=== PATIENT | female | born 2000 | race Caucasian/White ===

== ENCOUNTER 2018-09-10 11:48 | Emergency (ER) | payer OTHER ==
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
[2018-09-10] MEDS ORDERED: CYCLOBENZAPRINE HCL 10 MG TABLET PO ONE (15:17)
[2018-09-10] MEDS ORDERED: NAPROXEN 250 MG TABLET PO ONE (15:17)
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
[2018-09-10 15:29] VITALS: BP 109/66
--- NOTE | 2018-09-10 20:12 | EKG REPORT ---
SEVERITY:- NORMAL ECG - SINUS RHYTHM : Confirmed by: Yin Cobb MD 10-Sep-2018 20:10:57
== END 2018-09-10 15:32 | disposition home or self-care (01) ==
LOC: ER 11:48
DX: S16.1XXA Strain of muscle, fascia and tendon at neck level, initial encounter (principal); M54.2 Cervicalgia; M25.519 Pain in unspecified shoulder; V44.6XXA Car passenger injured in collision with heavy transport vehicle or bus in traffic accident, initial encounter; F17.210 Nicotine dependence, cigarettes, uncomplicated; Z71.6 Tobacco abuse counseling
CPT/HCPCS: 72040; 72110; 93005; 93010; 99283; 99406